=== PATIENT | male | born 1960 | race Caucasian/White ===

== ENCOUNTER → 2022-10-20 | Day surgery (SDC) | payer BC ==
[~2022-10-20] MED LIST: HYOSCYAMINE SULFATE 0.5 MG/ML INJ ONE; NIACIN; POVIDONE IODINE 0.05% 0.05 % ML PO ONE; PROPOFOL IV EMULSION 10 MG/ML 20 ML VIAL ONE; PROPOFOL IV EMULSION 50 ML IV ONE; VITAMIN D3125 MCG PO; ZINC PO
[2022-10-20 12:00] VITALS: BP 122/88
== END | disposition home or self-care (01) ==
LOC: OR 08:39
PROVIDERS: ATTEND Internal Medicine Gastroenterology
DX: Z09 Encounter for follow-up examination after completed treatment for conditions other than malignant neoplasm (principal); Z86.010 Personal history of colon polyps; K64.8 Other hemorrhoids; Z71.3 Dietary counseling and surveillance; Z71.89 Other specified counseling; Z01.810 Encounter for preprocedural cardiovascular examination; Z68.24 Body mass index [BMI] 24.0-24.9, adult
CPT/HCPCS: 45378; 93005; J1980; J2704 ×2